=== PATIENT | male | born 1935 | race Two or more races ===

== ENCOUNTER 2021-11-27 03:18 | Day surgery (SDC) | payer MEDICARE ==
[~2021-11-27] VITALS: Ht 182.9 cm; Wt 83.9 kg
[2021-11-27] MEDS ORDERED: TRANEXAMIC ACID 3,000 MG in SODIUM CHLORIDE IRRIG SOLUTION 70 ML IR ONE (04:30)
[2021-11-27] MEDS ORDERED: CEFAZOLIN 1 GM in IV D5W 50 ML IV ONE (04:30)
== END 2021-11-27 08:52 | disposition home or self-care (01) ==
LOC: DS 03:18
PROVIDERS: ATTEND Specialist
DX: Z00.00 Encounter for general adult medical examination without abnormal findings (principal)
CPT/HCPCS: A4217; J0690; J7060